=== PATIENT | male | born 1990 | race Caucasian/White ===

== ENCOUNTER 2017-03-24 11:49 | Emergency (ER) | payer BC ==
[2017-03-24 12:05] VITALS: TEMP 98.2; O2SAT 98
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
[2017-03-24] MEDS ORDERED: AMOXICILLIN & POT CLAVULANATE 875 MG TAB PO ONE (12:53)
[2017-03-24 13:02] VITALS: BP 135/88
== END 2017-03-24 13:01 | disposition home or self-care (01) ==
LOC: ER 11:49
DX: S01.442A Puncture wound with foreign body of left cheek and temporomandibular area, initial encounter (principal); S51.842A Puncture wound with foreign body of left forearm, initial encounter; W33.01XA Accidental discharge of shotgun, initial encounter; Y92.9 Unspecified place or not applicable

== ENCOUNTER → 2018-08-13 | Outpatient (CLI) | payer BC | LOC: GMAE 14:10 | PROVIDERS: ATTEND Family Medicine | DX: N50.812 Left testicular pain (principal) ==

== ENCOUNTER → 2019-12-30 | Outpatient (CLI) | payer BC ==
--- NOTE | 2019-12-30 16:01 | RAD ---
EXAM DESCRIPTION: Barium Swallow: Rad-Fluoroscopy. CLINICAL HISTORY: DYSPHAGIA, UNSPEC. COMPARISON: None TECHNIQUE: Fluoroscopy performed by Dr. Agosto The patient swallowed barium pill with water. The patient swallowed gas-producing granules, water, and heavy density barium under fluoroscopic visualization. The images were obtained with the patient standing and horizontal. Patient drank medium density barium through a straw in the semi-prone position. 78 fluoroscopic cine loop images. 6 single static fluoroscopic images. Total fluoroscopy time was 2.2 minutes. DAP: 9.67 Gy-cm2.. FINDINGS: Round radiodense object less than 5 mm diameter in the right neck soft tissues at the level of the larynx. Patient swallowed barium pill with difficulty and no delay from the oropharynx to the stomach. No significant abnormalities in the swallowing mechanism. No laryngeal penetration or aspiration. Primary peristaltic wave completely empties the esophagus with no secondary or tertiary contractions. No mucosal abnormalities. No mass effect. Small sliding hiatal hernia with no gastroesophageal reflux. No gross mucosal abnormalities in the stomach or duodenum. No abnormal narrowing of the gastroduodenal junction. Normal transit time. IMPRESSION: Fluoroscopic guided barium esophagram showing no abnormalities of the swallowing mechanism. Normal peristalsis in the esophagus with no mucosal lesions or mass effect. Small sliding hiatal hernia but no gastroesophageal reflux. Electronically signed by: Edward Agosto MD 12/30/2019 3:59 PM CDT
== END ==
LOC: RAD 10:04
PROVIDERS: ATTEND Family Medicine
DX: R13.10 Dysphagia, unspecified (principal); K44.9 Diaphragmatic hernia without obstruction or gangrene